=== PATIENT | female | born 1980 | race Caucasian/White ===

== ENCOUNTER 2017-03-21 19:23 | Emergency (ER) | payer SELFPAY ==
[~2017-03-21] VITALS: Ht 162.6 cm; Wt 72.6 kg
--- OUTSIDE RECORDS SUMMARY | 2017-03-21 20:00 | External Medical Summary Rpt ---
Demographics Preferred Language Divehi Marital Status Unknown Scientology Affiliation Unknown Race Unknown Ethnic Group Unknown Author Author BERNADETTE Address Unknown Phone Immunization No patient found.
--- OUTSIDE RECORDS SUMMARY | 2017-03-21 20:00 | External Medical Summary Rpt ---
Author Author [employer] Organization [employer] Address Unknown Phone Unavailable Purpose Continuity of Care Document - through 2016
--- OUTSIDE RECORDS SUMMARY | 2017-03-21 20:00 | External Medical Summary Rpt ---
Demographics Preferred Language Ukrainian Marital Status Unknown Advent Affiliation Unknown Race Unknown Ethnic Group Unknown Author Author BERNADETTE Address Unknown Phone Immunization No patient found.
--- OUTSIDE RECORDS SUMMARY | 2017-03-21 20:00 | External Medical Summary Rpt ---
Author Author BERNADETTE Address Unknown Phone [email or web address] Purpose Continuity of Care Document - through 2016
--- OUTSIDE RECORDS SUMMARY | 2017-03-21 20:00 | External Medical Summary Rpt ---
Author Author BERNADETTE Address Unknown Phone [email or web address] Purpose Continuity of Care Document - through 2016
[2017-03-21] MEDS ORDERED: BACTRIM DS 8001 TA1 PO (20:15)
--- NOTE | 2017-03-21 20:16 | Urgent Treatment Center Report ---
History of Present Issue Date/Time Seen by Provider 03/21/172002 Visit Reason Pt arrived:Walked Presenting Problem:c/o boil under right arm in armpit area. Area red and painful. Has had for 1 week Location if Accident: Onset of symptoms date/time:/ or onset unknown for:MEDICAL HX UNKNOWN Have you (or family members/close friends) recently traveled outside the [place]? N If Yes, where/when: Have you had exposure to infectious disease within the past month? TB? Other? Specify: Patient state that she has a swollen spot under her right arm that is sore and swolln States that the area is a little red an sore to touch. States that it has been there for about a week She denies fever, chills, no streaks or drainage from the area. State that it hurts more when she touches it ALLERGIES Coded Allergies: No Known Allergies (03/21/17) Home Medications Reported Medications No Known Home Medications History Medical History General CAD? No Angina: No [place]: No Hypertension? No Hyperlipidemia? No CHF? No DVT? No PE? No COPD? No Asthma? No Anemia? No GERD? No Gastric ulcers? No GI Bleed? No Hernia? No Thyroid Problems? No Hypothyroidism? No CVA? No Seizures? No Diabetes? No Renal Insuffiency? No UTI? No Stones? No BPH? No GB Disease: No Nephritic Syndrome? No Asplenia? No Hepatitis? No Sickle Cell Disease? No Arthritis? No Migraines? No Cataracts? No Glaucoma? No MRSA? No HIV? No TB? No Anxiety? No Depression? No Cancer? No Immunization HX DT/Tetanus Refuses Surgical Hx Previous Surgery?Y HYSTERECTOMY Social History Smoking Hx Smoker: Never Smoker Tobacco: No Alcohol Alcohol: No Review of Systems All Other Systems Reviewed and Negative Comment Boil like area under right arm pit for one week that is sore to touch and a little red Physical Exam Vital Signs Vital Signs Date Time Temp Pulse Resp B/P Pulse O2 O2 Flow FiO2 Ox Delivery Rate 03/21 1950 99.1 82 18 114/69 99 03/21 1928 99.1 82 18 114/69 99 General Appearance normal appearance, WD/WN, no apparent distress Respiratory Status Yes: trachea midline, chest symmetrical, non tender chest. No: respiratory distress. 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 No Departure Departure Time of Disposition 2010 Disposition DC Home or Self Care(routine) Clinical Impression Primary Impression: Skin infection Condition STABLE Referrals RAGINI,UMANG Patient Instructions Boil, DI for Boils Additional Instructions Take antibiotic as prescribed Warm compressess to the area will help with swelling and pain Follow up with family doctor for further testing Some other things you can do that may help 1. Massage A simple hand massage can help stimulate the swollen lymph nodes to function properly. If this is successful, the swelling may begin to subside. 2. Warm compress A warm compress can help increase blood circulation, which in turn can help reduce the swelling of lymph nodes. Take a cloth and dip it into warm water. Wring out the excess water and place the warm cloth onto the swollen area for five to 10 minutes. Repeat this process a few times a day for a few days. 3. Garlic One of the easiest methods you can try to reduce the swelling of a lymph node is eating garlic. Garlic has some anti-inflammatory properties that can help reduce the swelling. Eat two to three cloves of raw garlic (or a garlic supplement) to help with the swelling, or you could also massage the swollen area with garlic oil for a few minutes, two to three times a day. 4. Apple cider vinegar A home remedy mainstay, apple cider vinegar may also be able to help reduce the swelling of lymph nodes. Take equal parts apple cider vinegar and water and soak a cloth in the mixture. Rub the cloth on the swollen area and leave it for five or six minutes before you wipe off the concoction. You can also drink one tablespoon of apple cider vinegar (feel free to mix it with a little honey and water) to try and help reduce the swelling. 5. Honey Natural honey has many anti-bacterial and anti-inflammatory properties that can help reduce the swelling in the lymph nodes. The easiest method for shrinking swollen lymph nodes is to just apply the honey to the swollen area. Let the honey sit for 10 to 15 minutes before washing it off with a warm cloth. The alternative is to take one or two tablespoons of honey and mix it with some fresh lemon juice and drink the mixture. These home remedies could potentially reduce swelling in lymph nodes, but it should be stressed that this is for certain mild causes of swollen lymph nodes. These remedies are not cures for cancer and should not be treated as such. Discharge Counseling Counseled pt/family regarding diagnosis, medications/RX, home care, follow up needs Prescriptions Current Visit Scripts SULFAMETHOXAZOLE W/TRIMETHOPRI (Bactrim Ds Tab) 1 TABLET PO BID #20 TAB at 2016
[2017-03-21 20:17] VITALS: BP 114/69
== END 2017-03-21 20:20 | disposition home or self-care (01) ==
LOC: ER 19:23 → UTC 19:41 → ER 19:41 → UTC 20:20
DX: L02.421 Furuncle of right axilla (principal)